=== PATIENT | male | born 1985 | race African-American/Black ===

== ENCOUNTER 2024-11-27 10:36 | Emergency (ER) | payer MEDICAID, OTHER ==
[~2024-11-27] VITALS: Ht 185.4 cm; Wt 75.0 kg
[~2024-11-27 10:36] MED LIST: KEPP500 PO; SUCR1TAB PO
[2024-11-27 10:37] VITALS: O2SAT 98
[2024-11-27] MEDS: SODIUM CHLORIDE 0.9% 1,000 ML IV ONE (12:18)
[2024-11-27] MEDS: ONDANSETRON HCL 4MG/2ML INJ IV STA (12:18)
[2024-11-27] MEDS: FAMOTIDINE 20MG/2ML VIAL IV STA (12:18)
[2024-11-27 13:23] LABS: CARBON DIOXIDE 24 mEq/L (21-32); CHLORIDE 103 mEq/L (98-107); POTASSIUM 3.4 mEq/L (3.5-5.1); SODIUM 136 mEq/L (136-145)
[2024-11-27 13:24] LABS: CALCIUM 8.8 mg/dL (8.7-10.4)
[2024-11-27 13:28] LABS: CREATININE 1.2 mg/dL (0.6-1.3)
[2024-11-27 13:29] LABS: GLUCOSE 72 mg/dL (70-105); UREA NITROGEN BLOOD 11 mg/dL (9-23)
[2024-11-27 13:35] LABS: INR 1.1; PROTHROMBIN TIME 11.4 sec (9.6-11.0)
[2024-11-27 14:29] LABS: TROPONIN I HIGH SENSITIVITY < 4 ng/L (3.0-53)
[2024-11-27 14:54] LABS: BASOPHILS % 0.4 % (0.0-2.0); EOSINOPHILS % 0.7 % (0.0-5.0); HEMATOCRIT. 42.5 % (42.0-52.0); HEMOGLOBIN. 14.4 g/dL (14.0-18.0); LYMPHOCYTES % 33.1 % (20.0-50.0); MEAN CORPUSCULAR HEMOGLOBIN 32.6 pg (28.0-32.0); MEAN CORPUSCULAR HGB CONC 33.8 g/dL (31.0-37.0); MEAN CORPUSCULAR VOLUME 96.4 fL (80.0-94.0); MEAN PLATELET VOLUME 7.3 fl (7.4-10.4); MONOCYTES % 10.4 % (2.0-8.0); NEUTROPHILS % 55.4 % (40.0-76.0); PLATELET 220 x1000/uL (130-400); RED BLOOD CELL COUNT 4.41 mill/uL (4.7-6.1); RED CELL DISTRIBUTION WIDTH 12.5 % (11.6-14.6); WHITE BLOOD COUNT 5.8 x1000/uL (4.5-11.0)
[2024-11-27 15:31] LABS: CLARITY URINE CLEAR (CLEAR); COLOR URINE YELLOW (YELLOW); GLUCOSE URINE NEGATIVE (NEGATIVE); KETONES URINE 2+ (NEGATIVE); LEUKOCYTE ESTERASE URINE NEGATIVE (NEGATIVE); NITRITE URINE NEGATIVE (NEGATIVE); OCCULT BLOOD URINE NEGATIVE (NEGATIVE); PH URINE 6.5 (4.5-8.0); PROTEIN URINE TRACE (NEGATIVE); SPECIFIC GRAVITY URINE 1.017 (1.005-1.030)
[2024-11-27] MEDS ORDERED: FAMO-135 MT (15:48)
[2024-11-27] MEDS ORDERED: MAG355OR21 MT (15:49)
[2024-11-27 15:56] LABS: RBC URINE NONE SEEN /hpf (0-2); WBC URINE 0-2 /hpf (0-2)
[2024-11-27 15:57] LABS: BACTERIA URINE NONE SEEN; SQUAMOUS EPITHELIAL CELL URINE NONE SEEN /lpf (RARE/1+)
[2024-11-27 16:02] VITALS: BP 132/91; PULSE 97; RESP 19; TEMP 36.5; O2SAT 98
== END 2024-11-27 16:06 | disposition home or self-care (01) ==
LOC: ER 10:36
DX: K52.9 Noninfective gastroenteritis and colitis, unspecified (principal); I10 Essential (primary) hypertension; Z90.49 Acquired absence of other specified parts of digestive tract; Z79.899 Other long term (current) drug therapy
CPT/HCPCS: 99285; 74176; 96374; 96361; 96375; 80048; 81003; 83690; 85025; 85610; 86850; 86900; 86901; 84484; 36415; J3490; J2405; J7030

== ENCOUNTER 2024-12-27 02:57 | Emergency (ER) | payer MEDICAID, OTHER ==
[~2024-12-27] VITALS: Ht 180.3 cm; Wt 64.0 kg
[~2024-12-27 02:57] MED LIST changes: +FAMO-135 MT; +MAG355OR21 MT
[2024-12-27 02:58] VITALS: O2SAT 99
[2024-12-27] MEDS: ONDANSETRON HCL 4MG/2ML INJ IV STA (03:43)
[2024-12-27] MEDS: KETOROLAC 30MG/ML VIAL IV STA (03:44)
[2024-12-27] MEDS: SODIUM CHLORIDE 0.9% 1,000 ML IV ONE (03:44)
[2024-12-27 04:00] LABS: BASOPHILS % 0.4 % (0.0-2.0); EOSINOPHILS % 0.9 % (0.0-5.0); HEMATOCRIT. 38.9 % (42.0-52.0); HEMOGLOBIN. 13.3 g/dL (14.0-18.0); MEAN CORPUSCULAR HEMOGLOBIN 32.8 pg (28.0-32.0); MEAN CORPUSCULAR HGB CONC 34.1 g/dL (31.0-37.0); MEAN CORPUSCULAR VOLUME 96.1 fL (80.0-94.0); MEAN PLATELET VOLUME 7.2 fl (7.4-10.4); MONOCYTES % 9.4 % (2.0-8.0); NEUTROPHILS % 75.3 % (40.0-76.0); PLATELET 218 x1000/uL (130-400); RED BLOOD CELL COUNT 4.05 mill/uL (4.7-6.1); RED CELL DISTRIBUTION WIDTH 13.2 % (11.6-14.6); WHITE BLOOD COUNT 5.7 x1000/uL (4.5-11.0)
[2024-12-27 04:22] LABS: INR 1.1; PROTHROMBIN TIME 11.6 sec (9.6-11.0)
[2024-12-27 04:23] LABS: CHLORIDE 96 mEq/L (98-107); POTASSIUM 3.8 mEq/L (3.5-5.1); SODIUM 135 mEq/L (136-145)
[2024-12-27 04:24] LABS: CALCIUM 9.6 mg/dL (8.7-10.4); CARBON DIOXIDE 25 mEq/L (21-32)
[2024-12-27 04:29] LABS: CREATININE 1.1 mg/dL (0.6-1.3); GLUCOSE 91 mg/dL (70-105); UREA NITROGEN BLOOD 24 mg/dL (9-23)
[2024-12-27 04:30] LABS: ETHANOL BLOOD < 10 mg/dL (<10)
[2024-12-27 04:31] LABS: ALANINE AMINOTRANSFERASE 43 IU/L (10-49); ALBUMIN 5.1 g/dL (3.2-4.8); ASPARTATE AMINOTRANSFERASE 122 IU/L (<34); BILIRUBIN DIRECT 0.4 mg/dL (<=3.0); BILIRUBIN TOTAL 1.2 mg/dL (0.1-1.0); PROTEIN TOTAL 8.4 g/dL (6.0-8.3)
[2024-12-27 05:00] VITALS: BP 163/92; PULSE 94; RESP 20; TEMP 37.3; O2SAT 100
[2024-12-27] MEDS ORDERED: ONDA4TAB50 MT (05:57)
[2024-12-27] MEDS ORDERED: MAG355OR21 MT (05:57)
[2024-12-27] MEDS ORDERED: ACET-2708 MT (05:57)
[2024-12-27] MEDS: MAGNESIUM/ALUMINUM HYDROXIDE/SIMETHICONE 30ML UDC PO ONE (06:00)
[2024-12-27] MEDS: PANTOPRAZOLE SODIUM 40 MG/VIAL IV ONE (06:00)
== END 2024-12-27 06:23 | disposition home or self-care (01) ==
LOC: ER 02:57
DX: R10.84 Generalized abdominal pain (principal); I10 Essential (primary) hypertension; F31.9 Bipolar disorder, unspecified; Z79.899 Other long term (current) drug therapy; Z00.00 Encounter for general adult medical examination without abnormal findings; Z90.49 Acquired absence of other specified parts of digestive tract
CPT/HCPCS: 80076; 80048; 80320; 83690; 85025; 85610; 36415; 74176; 96361; 96374; 96375; 99285; J1885; J2405; J2470; J7030; Z7610; A4606; G0480